=== PATIENT | male | born 1995 | race African-American/Black ===

== ENCOUNTER 2018-06-18 16:02 | Emergency (ER) | payer OTHER | END 2018-06-18 19:18 | disposition other institution (70) | LOC: ED 16:02 | DX: Z02.89 Encounter for other administrative examinations (principal) ==

== ENCOUNTER 2018-06-18 16:02 | Emergency (ER) | payer OTHER ==
[~2018-06-18] VITALS: Ht 172.7 cm; Wt 72.6 kg
[2018-06-18 16:04] VITALS: Ht 172.7 cm; Wt 72.6 kg
[2018-06-18 18:38] VITALS: BP 138/80
== END 2018-06-18 19:18 | disposition other institution (70) ==
LOC: ED 16:02
DX: Z04.1 Encounter for examination and observation following transport accident (principal); F10.129 Alcohol abuse with intoxication, unspecified; V49.49XA Driver injured in collision with other motor vehicles in traffic accident, initial encounter; Y93.I9 Activity, other involving external motion; Y92.413 State road as the place of occurrence of the external cause; Y99.8 Other external cause status

== ENCOUNTER 2020-01-13 18:45 | Emergency (ER) | payer OTHER, SELFPAY ==
[~2020-01-13] VITALS: Ht 172.7 cm; Wt 72.6 kg
[2020-01-13 18:49] VITALS: Ht 172.7 cm; Wt 72.6 kg
[2020-01-13 19:23] VITALS: BP 131/71
== END 2020-01-13 19:23 | disposition home or self-care (01) ==
LOC: ED 18:45
DX: Z20.828 Contact with and (suspected) exposure to other viral communicable diseases (principal)
CPT/HCPCS: U0003-CS

== ENCOUNTER 2020-01-18 13:51 | Emergency (ER) | payer OTHER, SELFPAY ==
[~2020-01-18] VITALS: Ht 172.7 cm; Wt 72.6 kg
[2020-01-18 13:53] VITALS: BP 126/81; Ht 172.7 cm; Wt 72.6 kg
== END 2020-01-18 15:46 | disposition home or self-care (01) ==
LOC: ED 13:51
DX: Z20.828 Contact with and (suspected) exposure to other viral communicable diseases (principal)
CPT/HCPCS: U0003-CS